=== PATIENT | male | born 1980 | race African-American/Black ===

== ENCOUNTER 2017-11-09 18:53 | Emergency (ER) | payer BC ==
[~2017-11-09] VITALS: Ht 180.3 cm; Wt 91.9 kg
[2017-11-09 20:02] LABS: HEMATOCRIT 40.1 % (38.0-50.0); MCHC 31.9 G/DL (30.0-36.0); MEAN PLAT.VOLUME 10.6 uM^3 (9.0-12.4); PLATELET COUNT 211 K/uL (156-360); RBC DIS.WIDTH-CV 14.6 % (11.8-14.6); RBC DIS.WIDTH-SD 37.6 % (39-53); RED BLOOD COUNT 5.57 M/uL (4.00-5.50); WHITE BLOOD COUNT 11.2 K/uL (4.1-10.2)
[2017-11-09 20:04] LABS: CHLORIDE 103 mEq/L (99-109); POTASSIUM 4.6 mEq/L (3.7-5.4); SODIUM 135 mEq/L (136-147)
[2017-11-09 20:05] LABS: GLUCOSE 98 mg/dL (70-99)
[2017-11-09 20:07] LABS: ANION GAP 6 MEQ/L (2-14)
[2017-11-09 20:09] LABS: GFR ESTIMATE (CALCULATED) > 59 mL/min/ (58.99-99999)
[2017-11-09 20:10] LABS: UREA NITROGEN (BUN) 11 mg/dL (9-23)
[2017-11-09 20:12] LABS: CREATINE KINASE 151 IU/L (1-294)
[2017-11-09 21:06] LABS: ADD MIUA? YES; BILIRUBIN NEGATIVE; BLOOD MODERATE; COLOR YELLOW ((YELLOW)); GLUCOSE (STRIP) NEGATIVE; KETONES NEGATIVE; LEUKOCYTES LARGE; NITRITE NEGATIVE; PROTEIN (STRIP) 100; SPECIFIC GRAVITY 1.014 (1.000-1.030)
[2017-11-09 21:38] LABS: BACTERIA 1+ /HPF; EPITHELIAL CELLS RARE /HPF; MUCUS RARE /LPF; RED BLOOD CELLS 40-50 /HPF (0-5); WHITE BLOOD CELLS TNTC /HPF (0-5)
[2017-11-09 21:39] LABS: CASTS NONE SEEN /LPF; CRYSTALS NONE SEEN
[2017-11-09] MEDS ORDERED: CIPRO500 MG PO (22:08)
[2017-11-10 00:19] VITALS: BP 115/65
== END 2017-11-10 00:28 | disposition home or self-care (01) ==
LOC: EME 18:53
PROVIDERS: Physician Assistant
DX: N10 Acute pyelonephritis (principal)
CPT/HCPCS: 74176; 80048; 81003; 82550; 85027; 99281; 99285; J0696; J7030